=== PATIENT | male | born 1935 | race Caucasian/White ===

== ENCOUNTER 2016-10-26 18:20 | Emergency (ER) | payer MEDICARE, BC ==
[2016-10-26 19:25] VITALS: BP 161/63
--- NOTE | 2016-10-26 19:56 | UC ---
Throat Pain/Nasal Juan HPI - HPI Summary HPI Summary: complaint of cough that started 3 days ago producitve cough with clear to white muscus 2 days ago he had some chills denies nasal congestion, sore throat, ear pain denies N/V/D,able to sleep stressed out d/t 's health status my is in the hospital and is needing lots of care- - History of Current Complaint Chief Complaint: UCRespiratory Stated Complaint: COUGH,CHILLS Time Seen by Provider: 10/26/16 19:49 Hx Obtained From: Patient - Allergies/Home Medications Allergies/Adverse Reactions: Allergies Allergy/AdvReac Type Severity Reaction Status Date / Time No Known Allergies Allergy Verified 10/26/16 19:26 PMH/Surg Hx/FS Hx/Imm Hx Previously Healthy: Yes Endocrine History Of: Reports: Diabetes, Dyslipidemia Denies: Thyroid Disease Cardiovascular History Of: Reports: Hypertension Denies: Cardiac Disorders, Pacemaker/ICD, Myocardial Infarction, Congestive Heart Failure, Deep Vein Thrombosis Respiratory History Of: Denies: COPD, Asthma GI/ History Of: Denies: Ulcer, Renal Disease Cancer History Of: Reports: Prostate Cancer - 1993 - Surgical History Surgical History: Yes Surgery Procedure, Year, and Place: radical perineal prostatectomy 1993. right hand/finger TRIGGER RELEASE. AXILLARY FATTY TUMOR REMOVAL. BILATERAL CATARACT REPAIR - Family History Known Family History: Positive: Respiratory Disease - father of emphysema Negative: Cardiac Disease, Hypertension - Social History Occupation: Retired Lives: With Family Alcohol Use: Daily Alcohol Amount: daily afternoon cocktail Substance Use Type: None Smoking Status (MU): Former Smoker When Did the Patient Quit Smoking/Using Tobacco: quit 1972 - Immunization History Most Recent Influenza Vaccination: fall 2014 Review of Systems Constitutional: Chills Skin: Negative Eyes: Negative ENT: Negative Respiratory: Cough Cardiovascular: Negative Gastrointestinal: Negative Genitourinary: Negative Motor: Negative Neurovascular: Negative Musculoskeletal: Negative Neurological: Negative Psychological: Negative All Other Systems Reviewed And Are Negative: Yes Physical Exam Triage Information Reviewed: Yes Appearance: No Pain Distress, Well-Nourished Vital Signs: Initial Vital Signs Temp 96.6 F 10/26/16 19:21 Pulse 84 10/26/16 19:21 Resp 16 10/26/16 19:21 BP 161/63 10/26/16 19:21 Pulse Ox 98 10/26/16 19:21 Vital Signs Reviewed: Yes Eyes: Positive: Conjunctiva Clear ENT: Positive: Pharyngeal erythema, Nasal congestion, TMs normal Neck: Positive: No Lymphadenopathy Respiratory: Positive: Lungs clear, Normal breath sounds, No respiratory distress Cardiovascular: Positive: RRR, No Murmur, Pulses Normal Abdomen Description: Positive: Nontender, Soft Bowel Sounds: Positive: Present Musculoskeletal: Positive: No Edema Neurological: Positive: Alert Psychological Exam: Normal Skin Exam: Normal Throat Pain/Nasal Course/Dx - Differential Dx/Diagnosis Differential Diagnosis/HQI/PQRI: Pharyngitis, URI, Other - bronchitis Provider Diagnoses: URI Discharge - Discharge Plan Condition: Stable Disposition: HOME Patient Education Materials: Upper Respiratory Infection (ED) Referrals: Anita Sarah MD [Primary Care Provider] - Additional Instructions: VIRAL UPPER RESPIRATORY INFECTION (COMMON COLD) What is Viral Upper Respiratory Infection? Viral upper respiratory infection is the medical term for the common cold. Respiratory infections can be caused by either a virus or bacteria. The common cold is caused by a virus. The virus travels through the air and can be passed easily from one person to another. This is one reason that it is so important to cover your mouth when you cough or sneeze. When you cover your mouth you will get the virus on your hands. If you touch something with that hand the virus is spread to the object you touch. Because of this you should be sure to wash your hands often when you have a cold. Symptoms usually begin 1 to 3 days after the virus takes hold in your body. Other people can catch your cold even before you start to notice symptoms, which is one reason why colds are hard to prevent. Symptoms May Include: Scratchiness or tickling in the throat Sore throat Stuffy nose Generalized aches and pains Coughing or sneezing Feeling tired Treatment Recommendations: Drink plenty of clear, nonalcoholic fluids, such as water, sports drinks, or juice. For example, an average adult should drink 8 ounces every hour, a child 6 to 10 years should drink 4 ounces every hour, and a child under 6 should drink 1 to 2 ounces every hour. You should rest as much as possible. You can use a cool-mist humidifier or steam vaporizer to increase air moisture. This will make it easier to breathe. Remember that a steam vaporizer may contain hot water that can cause severe capellan. If you smoke, stopsmoke irritates bronchial passages. If you are coughing up mucus, and milk seems to make the sputum thicker, do not eat or drink foods that contain milk. You want to try to cough up mucous whenever possible so that you dont get pneumonia. Do not use cough suppressant medicine without your healthcare providers OK. You should take all medications prescribed until completely gone, or as instructed. Non-prescription medicine such as acetaminophen (Tylenol) or ibuprofen (Motrin , Advil) may help your aches, pains, and fever. Do not take someone else's medicine, or penicillin tablets that you may have saved. You could cause a more serious problem than you already have. Don't bundle up to sweat out a fever. It only makes your fever worse. If you feel cold, cover up; if you feel warm, dress lightly.
== END 2016-10-26 20:15 | disposition home or self-care (01) ==
LOC: UCCORT 18:20
DX: J06.9 Acute upper respiratory infection, unspecified (principal); R09.81 Nasal congestion; Z87.891 Personal history of nicotine dependence; E11.9 Type 2 diabetes mellitus without complications; E78.5 Hyperlipidemia, unspecified; I10 Essential (primary) hypertension; Z85.46 Personal history of malignant neoplasm of prostate
CPT/HCPCS: 99212; G0463

== ENCOUNTER 2018-10-07 10:47 | Emergency (ER) | payer MEDICARE, BC ==
[2018-10-07 11:04] VITALS: BP 138/63
--- NOTE | 2018-10-07 11:46 | UC ---
General HPI - HPI Summary HPI Summary: pt is c/o a 5 day hx of pain-pressure and pulling in his low back on L but sometimes R. decided to self tx with an enema but no relief despite having BM's. can get some relief by being in seated position with no movement. pain much worse with standing and when walks, gets about 5 steps and gets the pain into both legs and feet. if walks or after walks, he bends forward and the pain improves as well. no saddle anesthesia, abdominal pain, fever, numb/weak extremities. denies changes to bowel/bladder function. chronic mild incontinence since prostate removed. no hx PVD or spinal issues. no diabetic neuropathy. hx prostates CA with resection about 30 years ago. denies hx injury but recalls much later that he had been shoveling prior to onset. current head cold as well. - History of Current Complaint Chief Complaint: UCGI Stated Complaint: LOWER ABDOMINAL/BOWEL PAIN Time Seen by Provider: 10/07/18 11:20 Hx Obtained From: Patient Pain Intensity: 10 - Allergy/Home Medications Allergies/Adverse Reactions: Allergies Allergy/AdvReac Type Severity Reaction Status Date / Time No Known Allergies Allergy Verified 10/07/18 10:58 Home Medications: Home Medications Apixaban* [Eliquis*] 5 mg PO BID 10/07/18 [History Confirmed 10/07/18] Cholecalciferol (Vitamin D3) [Vitamin D3] 1,000 unit PO DAILY 10/07/18 [History Confirmed 10/07/18] Fluticasone HFA 110 mcg(NF) [Flovent HFA 110 mcg(NF)] 2 puff INH BID 10/07/18 [ History Confirmed 10/07/18] Furosemide TAB* [Lasix TAB*] 20 mg PO DAILY 10/07/18 [History Confirmed 10/07/18 ] Metoprolol Succinate XL TAB* [Toprol XL TAB*] 25 mg PO BEDTIME 10/07/18 [ History Confirmed 10/07/18] PMH/Surg Hx/FS Hx/Imm Hx - Additional Past Medical History Additional PMH: peripheral edema, prostate CA with resection and post incontinence. Endocrine History: Diabetes, Dyslipidemia Cardiovascular History: Hypertension Psychological History: Anxiety - Surgical History Surgical History: Yes Surgery Procedure, Year, and Place: radical perineal prostatectomy 1993. right hand/finger TRIGGER RELEASE. AXILLARY FATTY TUMOR REMOVAL. BILATERAL CATARACT REPAIR - Family History Known Family History: Positive: Respiratory Disease - father of emphysema Negative: Cardiac Disease, Hypertension - Social History Alcohol Use: Daily Alcohol Amount: daily afternoon cocktail Substance Use Type: None Smoking Status (MU): Former Smoker When Did the Patient Quit Smoking/Using Tobacco: quit 1972 - Immunization History Most Recent Influenza Vaccination: fall 2014 Vaccination Up to Date: Yes Review of Systems All Other Systems Reviewed And Are Negative: Yes Constitutional: Positive: Negative Skin: Positive: Negative Eyes: Positive: Negative ENT: Positive: Negative Respiratory: Positive: Negative Cardiovascular: Positive: Negative Gastrointestinal: Positive: Negative Motor: Positive: Negative Neurovascular: Positive: Negative Neurological: Positive: Negative Psychological: Positive: Negative Is Patient Immunocompromised?: No Physical Exam Triage Information Reviewed: Yes Appearance: Well-Appearing Vital Signs: Initial Vital Signs Temp 97.8 F 10/07/18 10:59 Pulse 75 10/07/18 10:59 Resp 20 10/07/18 10:59 BP 138/63 10/07/18 10:59 Pulse Ox 100 10/07/18 10:59 Vital Signs Reviewed: Yes Eyes: Positive: Conjunctiva Clear ENT: Positive: Pharynx normal, TMs normal. Negative: Nasal congestion, Nasal drainage Neck: Positive: Supple, Nontender, No Lymphadenopathy, Other: - c-spine non tender Respiratory: Positive: Lungs clear, Normal breath sounds Cardiovascular: Positive: RRR, No Murmur, Pulses Normal - x4 Abdomen Description: Positive: Nontender, No Organomegaly, Soft. Negative: Bruit, CVA Tenderness (R), CVA Tenderness (L), Distended, Guarding, Pulsatile Mass Bowel Sounds: Positive: Present, Other: - good rectal tone, no mass, non tender/ non swollen external hemorrhoids. no saddle anesthesia. Male Genital Exam: Positive: Normal Genitalia Musculoskeletal: Positive: Other: - Back: no gross deformity, swelling or discoloration. thoracic/lumbar spine non tender. ROM intact but lateral bend to L and sit to stand causes the pain. Sciatic notches are non tender. 5/5 strength and 2+ reflexes x4. Sensation intact to touch x4. Slow gait and after a few steps, pt bends forward then sits due to recurrent pain. Lower legs warm, pink and strong pedal pulses that are symmetric. some hair on lower legs. Neurological: Positive: Alert Psychological: Positive: Age Appropriate Behavior Skin Exam: Normal Skin: Negative: Rashes Diagnostics - Radiology No standard instances Radiology Interpretation Completed By: Radiologist - lumbar spine=IMPRESSION: DEGENERATIVE DISC DISEASE AND FACET OSTEOARTHRITIS. Course/Dx - Differential Dx - Multi-Symptom Differential Diagnoses: Other - no concern for infection, AAA, cauda equina. arterial insufficiency unlikely given current exam. no shingles. arthritis on xray and concern for spinal claudication. - Diagnoses Provider Diagnosis: Spinal arthritis, Back pain Discharge - Sign-Out/Discharge Documenting (check all that apply): Patient Departure All imaging exams completed and their final reports reviewed: Yes - Discharge Plan Condition: Stable Disposition: HOME Patient Education Materials: Back Pain (ED) Additional Instructions: FOLLOW UP DR KETTY MORENO TOMORROW AT 2:15PM SCHEDULED BY THIS FACILITY. - Billing Disposition and Condition Condition: STABLE Disposition: Home
[2018-10-07] MEDS ORDERED: Cyclobenzaprine TAB* 10 MG PO ONE (12:05)
[2018-10-07] MEDS ORDERED: methylPREDNISolone 125 MG* 2 ML VIAL IM ONE (12:09)
== END 2018-10-07 13:08 | disposition home or self-care (01) ==
LOC: UCCORT 10:47
DX: M46.96 Unspecified inflammatory spondylopathy, lumbar region (principal); M51.36 Other intervertebral disc degeneration, lumbar region; Z85.46 Personal history of malignant neoplasm of prostate; E11.9 Type 2 diabetes mellitus without complications; I10 Essential (primary) hypertension; Z87.891 Personal history of nicotine dependence
CPT/HCPCS: 72110; 96372; 99212; A9270-GY; G0463; J2930